=== PATIENT | female | born 2000 | race Caucasian/White ===

== ENCOUNTER 2025-06-22 23:51 | Emergency (ER) | payer OTHER, SELFPAY ==
[2025-06-23] VITALS: BP 134/100
[2025-06-23 00:32] LABS: Hematocrit 41.9 % (37.0-47.0); Hemoglobin 14.4 g/dL (12.0-16.0); Mean Corp Hgb Conc. 34.4 g/dL (33.0-37.0); Mean Corpuscular Volume 85.5 fL (81.0-99.0); Nucleated Red Blood Cells % 0 %; Platelet Count 235 10^3/uL (130-400); Red Cell Dist. Width 12.0 % (11.5-14.5)
[2025-06-23 00:38] LABS: HCG, Serum Qualitative Screen Negative
[2025-06-23 00:48] LABS: ALT (SGPT) 14 U/L (0-35); AST (SGOT) 18 U/L (14-36); Albumin 4.5 g/dl (3.5-5.0); Alkaline Phosphatase 67 U/L (38-126); Blood Urea Nitrogen 11 mg/dl (7-17); Calcium 9.1 mg/dl (8.4-10.2); Carbon Dioxide 24 mmol/L (22-30); Chloride 107 mmol/L (98-107); Glucose 100 mg/dl (70-99); Potassium 3.8 mmol/L (3.5-5.1); Sodium 138 mmol/L (135-145); Total Protein 7.4 g/dl (6.3-8.2); eGFR > 60.00
[2025-06-23 02:19] VITALS: BMI 21.6
[2025-06-23 02:24] VITALS: BP 125/92
[2025-06-23 03:00] VITALS: BP 118/82
--- NOTE | 2025-06-23 03:27 | ED.GENMED ---
History of Present Illness
General
Chief Complaint: Weakness
Source: patient
Exam Limitations: none
Time Seen by Provider: 06/23/25 03:23
Nursing documentation reviewed up to this point in time: agreed with
History of Present Illness
History of Present Illness:
Note:
CHIEF COMPLAINT(S)
Palpitations and tremors.
HISTORY OF PRESENT ILLNESS
The patient is a 25-year-old female who presented with an episode of rapid heartbeat occurring approximately a few minutes after waking up in the night. She noticed her heart racing immediately upon waking and described feeling very clammy at the
time. Additionally, the patient reported experiencing tremors, primarily affecting her legs, but also with some involvement of the entire body. She noted an inability to remember the episode clearly and had difficulty articulating sentences during
the event. The episode gradually subsided as she was en route to the medical facility.
During the episode, the patient did not experience any chest pain but felt 'foggy' with no associated headaches. There were no preceding events such as bad dreams, and she did not have a history of similar episodes. She denied any recent contact
with sick individuals, feelings of warmth or fever, and had not been taking any new medications. She reported no recent vomiting, abdominal or chest pain, nor any lightheadedness or fainting episodes in the past few days. The patient has no known
medical conditions, does not consume large amounts of caffeine daily, and does not smoke cigarettes. She has not engaged in any heavy manual labor or prolonged outdoor work recently. Currently, she reports feeling better, although not completely
back to baseline, with a lingering sensation of 'foggy' thinking.
PAST MEDICAL AND SURIGICAL HISTORY
The patient has no known past medical or surgical history.
SOCIAL HISTORY
Denies smoking cigarettes and excessive caffeine consumption.
MEDICATIONS
No new medications; existing regimen unchanged.
REVIEW OF SYSTEMS
- Cardiovascular: Palpitations reported.
- Neurological: Tremors predominantly in legs, transient difficulty in speech and 'foggy' sensation. No dizziness or headaches.
- General: No fever or chills.
- Respiratory: Mild difficulty in breathing at the peak of the episode, resolved.
- Gastrointestinal: No vomiting or abdominal pain.
PHYSICAL EXAM
General: Alert, no acute distress.
Skin: Warm, dry.
Head: Normocephalic, atraumatic.
Neck: Supple, trachea midline.
Eye Ears, Nose, Mouth, and Throat: Oral mucosa moist.
Cardiovascular: Normal peripheral perfusion, No edema.
Respiratory: Respirations are non-labored.
Gastrointestinal: Abdomen nondistended.
Back: Normal range of motion, Normal alignment.
Musculoskeletal: Normal ROM, normal strength.
Neurological: Alert and oriented to person, place, time, and situation, No focal neurological deficit observed. CN II-XII intact. Normal gait. Normal finger to nose, heel to solorio.
Psychiatric: Cooperative, appropriate mood & affect.
PLAN
The patient was reassured, and it was suggested that she follow up with cardiology for further evaluation with a Holter monitor to assess for any intermittent cardiac arrhythmias. Blood work was checked. The patient was advised to contact the
cardiology office for scheduling.
DIFFERENTIAL DIAGNOSIS
The Differential Diagnosis includes, in no particular order and is not limited to:
1. Supraventricular Tachycardia (SVT)
2. Panic Attack
3. Hyperthyroidism
4. Electrolyte Imbalance
5. Vasovagal Syncope
6. Orthostatic Hypotension
7. Anxiety Disorder
8. Dehydration
9. Atrial Fibrillation
10. Neurological Disorder
Disposition:
SUMMARY OF ENCOUNTER
A 25-year-old female with no past medical history presented with a transient episode of tremors, confusion, and palpitations, which subsided by the time she arrived at the emergency department. The episode began approximately a few minutes after
waking up and interrupted her sleep. Currently, she feels well and is in no acute distress. An evaluation was performed, including a review of telemetry monitoring which showed no signs of arrhythmia, and an EKG that indicated normal sinus rhythm
with no ischemic changes or dysrhythmia. Laboratory tests were unremarkable, and a thorough neurological exam was normal and non-focal.
ASSESSMENT
The differential diagnosis for the episode includes dysrhythmia, panic attack, thyroid disorder, pericarditis, URI etc. However, the patient is currently asymptomatic with no chest pain, palpitations, or shortness of breath.
PLAN
The patient was advised to follow up for further evaluation, including potential Holter monitoring, and was counseled on strict return precautions.
INDEPENDENT REVIEW OF LABS AND INTERPRETATION OF TESTS
My independent review of telemetry monitoring shows no signs of arrhythmia. My independent interpretation of the EKG is normal sinus rhythm with no ischemic changes or dysrhythmia. My independent review of lab tests indicates they are unremarkable.
PATIENT EDUCATION AND COUNSELING
The patient was advised to follow up for further evaluation, including potential Holter monitoring, and was counseled on strict return precautions.
FOLLOW-UP INSTRUCTIONS
The patient was advised to contact a cardiology office for follow-up, including potential Holter monitoring.
MEDICAL DECISION MAKING
-Complexity of Data Reviewed: Differential diagnosis includes dysrhythmia, panic attack, thyroid disorder, and pericarditis.
-Data:
Category 1:
My independent review of telemetry shows no signs of arrhythmia.
My independent interpretation of EKG is normal sinus rhythm with no ischemic changes or dysrhythmia.
Lab tests were reviewed and found to be unremarkable.
-Risk: Consideration of Admission/Observation was considered given the complexity and risk of the patients presenting complaint, exam findings, and/or their underlying comorbidities. However, ultimately the patient is deemed safe for outpatient
management with close follow-up. Reasoning: The work-up was reassuring and did not reveal any acute life/organ-threatening processes, her symptoms were well controlled upon reevaluation, reexamination was reassuring, vitals were stable, and the
patient was agreeable with discharge and reliable for follow-up.
DIAGNOSIS
1. Palpitations - R00.2
2. Tremors - R25.1
3. Altered mental status, unspecified - R41.82
Review of Systems
Review of Systems
All Other Systems: ROS reviewed and negative except as documented in HPI and ROS
Phy Exam
Physical Exam
Physical Exam:
see hpi
Course
Orders/Labs/Results
Orders:
Orders
06/23/25 00:06
EKG [Electrocardiogram (*1)] Urgent
Reason for Study: Fatigue / Weakness
06/23/25 00:07
EKG- Treatment ONCE
Test Result ONCE
06/23/25 00:19
Complete Blood Count/With Diff Urgent
Comprehensive Metabolic Panel Urgent
HCG, Serum Qualitative Screen Urgent
Abnormal Lab Results
06/23/25
00:19
Absolute Monos (auto) 0.7 H 10^3/uL
(0.1-0.6)
Monocytes % 9.9 H %
(1.7-9.3)
Glucose 100 H mg/dl
(70-99)
06/23/25 00:19
06/23/25 00:19
Vital Signs
Initial and Last Documented VS:
Initial Vital Signs
Temp Pulse Resp BP Pulse Ox
98.4 F 110 20 134/100 100
06/23/25 00:00 06/23/25 00:00 06/23/25 00:00 06/23/25 00:00 06/23/25 00:00
Last Documented Vital Signs
Temp Pulse Resp BP Pulse Ox
98.4 F 62 13 121/81 97
06/23/25 00:00 06/23/25 03:49 06/23/25 03:00 06/23/25 03:49 06/23/25 03:49
*Pulse Oximetry
SaO2: 100
Oxygen Mode of Delivery: Room air
Patient hypoxic: no
*Critical Care Note
Total Time (30-74mins, 75-104mins- exclusive of procedures): Not Applicable
ED Attending Note
-
Portions of this chart may have been created with voice recognition software.� Occasional wrong word or��sound alike� substitutions may have occurred due to the inherent limitations of voice recognition software.
Discharge Plan
Departure
Patient Disposition: Home (Routine Discharge)
Date of Disposition: 06/23/25
Time of Disposition: 03:44
Patient with high blood pressure during this ER visit?: Yes
Condition: Good
Discharge Problem:
Palpitations, Transient confusion
Instructions: Generalized Weakness (DC), Palpitations
Prescriptions:
No Action
norethindrone-e.estradiol-iron [Aurovela Fe 1-20 (28)] 1 mg-20 mcg (21)/75 mg (7) Tablet
1 tab PO DAILY
Referrals:
Veronica Sebastian MD [Family Provider, Internal Medicine]
Salina Hobbs MD [Active, Cardiology] - Call in 1-3 days for appt
Activity Restrictions/Additional Instructions:
Please call the attached number to schedule an appointment to see cardiology in follow up, you may need halter monitoring for further evaluation.
Please follow up with your primary care provider in one week for reassessment.
PLEASE RETURN EMERGENCY DEPARTMENT SHOULD YOU DEVELOP EPISODE OF LOSS OF CONSCIOUSNESS, FAINTING SPELL, FEVERS OR CHILLS, INTRACTABLE NAUSEA OR VOMITING, PERSISTENT HEADACHES, CHEST PAIN, SHORTNESS OF BREATH, OR ANY OTHER SIGNS OR SYMPTOMS WORRISOME
TO YOU.
Interventions
Interventions:
*Risk Screen - Suicide Last Done: 06/23/25 00:00
*General Assessment Last Done: 06/23/25 02:19
*Neglect/Abuse Screening Last Done: 06/23/25 02:19
*ED- Fall Risk Assessment Last Done: 06/23/25 02:19
*ED COVID-19 Vaccine History Last Done: 06/23/25 02:19
*Nursing Disposition Last Done: 06/23/25 04:04
ED- Pulmonary Assessment Last Done: 06/23/25 02:19
ED- Neurological Assessment Last Done: 06/23/25 02:19
ED- Cardiac Assessment Last Done: 06/23/25 02:19
Discharge Date and Time
Discharge Date/Time: 06/23/25 04:08
Print Language: LAO
[2025-06-23 03:49] VITALS: BP 121/81
== END 2025-06-23 04:08 | disposition home or self-care (01) ==
LOC: EMR 23:51
PROVIDERS: EMERGENCY PHYSICIAN Student in an Organized Health Care Education/Training Program; FAMILY PHYSICIAN Internal Medicine
DX: R00.2 Palpitations (principal); R41.0 Disorientation, unspecified
CPT/HCPCS: 99284; 80053; 84703; 85025; 93005

== ENCOUNTER 2025-07-21 11:26 | Emergency (ER) | payer OTHER, SELFPAY ==
[2025-07-21] VITALS (7 sets, daily range): BP systolic 116–153; BP diastolic 81–96; PULSE 80–135
--- NOTE | 2025-07-21 13:15 | ED.GENMED ---
History of Present Illness
General
Chief Complaint: Cardiac Symptoms
Source: patient
Time Seen by Provider: 07/21/25 12:43
History of Present Illness
History of Present Illness:
25-year-old female with no significant past medical history presents back to the emergency department after being seen approximately 1 month ago for continued palpitations noting that at rest her heart rate will be around the 100 to 105 bpm, when
ambulating will go as high as 145 bpm and accompanied with some mild shortness of breath, lightheadedness but no near syncopal episodes. Patient states that her symptoms have not gotten any worse from when she was seen here in the emergency
department but they have not gotten any better. She has done outpatient workup with her primary care provider noting that on labs her ferritin was a little bit low and is currently taking vitamin B12 and iron supplementation as well as had a CT
scan of her chest to rule out PE which was negative due to being on an oral contraceptive recently as well as traveling to [place] in May. Patient has no other concerns at this time.
Past History
Past History
ED Past Medical History: None
ED Past Surgical History: None
Social History
Tobacco: Non-smoker
Alcohol: None
Drug: None
Personal:
Living: with family
Employment: Employed
Review of Systems
Review of Systems
All Other Systems: ROS reviewed and negative except as documented in HPI and ROS
Phy Exam
Physical Exam
Physical Exam:
GENERAL: Alert , in no apparent distress
HEAD: Normocephalic atraumatic
EYE: conjunctiva clear
NECK: Supple, no significant adenopathy.
ENT: o/p clr, mmm.
CARDIAC: Borderline tachycardic heart rate and rhythm around 85 bpm to 95 bpm, intermittently will go to as high as 108 bpm
LUNGS: Clear breath sounds bilaterally, no acute respiratory distress, no wheezes/rales/rhonchi
NEUROLOGICAL: Alert and oriented
SKIN: Warm and dry, skin intact.
MUSCULOSKELETAL: well perfused. No edema
PSYCH: Normal and appropriate interaction.
Scores
Heart Failure Risk
Heart Failure Risk Score: Not Applicable
Heart Score for Chest Pain Patients
STEMI patient?: Not applicable
Withdrawal Assessment of Alcohol
Withdrawal Assessment Completed?: Not applicable
Course
Orders/Labs/Results
Orders:
Orders
07/21/25 11:28
EKG [Electrocardiogram (*1)] Urgent
Reason for Study: Tachycardia
EKG- Treatment ONCE
07/21/25 12:43
Test Result ONCE
07/21/25 12:47
Orthostatic VS- Treatment ONCE
07/21/25 13:03
US Periph Venous LOWER Ext Charlie Urgent
Comment:
Reason For Exam: recent travel, pain, palpitations
07/21/25 13:09
Complete Blood Count/With Diff Urgent
Comprehensive Metabolic Panel Urgent
HCG, Serum Qualitative Screen Urgent
TSH Urgent
Troponin I Urgent
Abnormal Lab Results
07/21/25
13:09
Absolute Lymphs (auto) 1.0 L 10^3/uL
(1.2-3.4)
Neutrophils % 75.4 H %
(42.2-75.2)
Lymphocytes % 15.1 L %
(20.5-51.1)
Total Bilirubin 1.5 H mg/dl
(0.2-1.3)
ALT 39 H U/L
(0-35)
Total Protein 8.3 H g/dl
(6.3-8.2)
07/21/25 13:09
07/21/25 13:09
Vital Signs
Initial and Last Documented VS:
Initial Vital Signs
Temp Pulse Resp BP Pulse Ox
98.4 F 110 18 153/96 98
07/21/25 11:34 07/21/25 11:34 07/21/25 11:34 07/21/25 11:34 07/21/25 11:34
Last Documented Vital Signs
Temp Pulse Resp BP Pulse Ox
98.4 F 89 18 125/93 98
07/21/25 11:34 07/21/25 14:00 07/21/25 14:00 07/21/25 14:00 07/21/25 13:22
MDM/Problems Addressed
Differential Diagnosis Includes:
POTS
Orthostasis
Cardiac arrhythmia/dysrhythmia
I do not have concern for PE given recent negative CTA of the chest
Electrolyte imbalance
Thyroid disorder
MDM/Problems Addressed:
25-year-old female presenting back to the emergency department for continued episodes of palpitations, intermittent lightheadedness, worse when going from sitting to standing. No fevers or infectious symptoms, so far unremarkable workup as an
outpatient as well as in the ER earlier in the month. Patient without fevers or infectious symptoms. Will recheck labs, patient concern for possible DVT even though my suspicion for this is very low given her recent negative CTA, will obtain this
study. Anticipate discharge home with need for outpatient cardiac follow-up. Discussed need for likely Holter monitor, possible echocardiogram.
*Radiology
Radiology exam reviewed: radiology read reviewed
*Pulse Oximetry
SaO2: 98
Oxygen Mode of Delivery: Room air
Patient hypoxic: no
*Medical Laboratory Scientist Interpretation
Rate: tachycardiac
Heart Rate: 100
Rhythm: sinus
*Critical Care Note
Total Time (30-74mins, 75-104mins- exclusive of procedures): Not Applicable
Data Reviewed
Review of Other/Old Records Reveals: Labs and Records
Patient Management
Escalation/DeEscalation of care consider admission/obs:
Patient's ultrasound negative for DVT. Her workup is reassuring without any significant abnormalities. On multiple reevaluations her heart rate remained in the mid 70s to low 80s. Patient did express to me she already had an arranged follow-up
with [facility] cardiology this coming Saturday as well as a follow-up with her primary care provider this coming Saturday. Encouraged patient to keep both of these appointments. Discussed return precautions to the ER. Stable for discharge
home otherwise.
ED Attending Note
-
Portions of this chart may have been created with voice recognition software.� Occasional wrong word or��sound alike� substitutions may have occurred due to the inherent limitations of voice recognition software.
Discharge Plan
Departure
Patient Disposition: Home (Routine Discharge)
Date of Disposition: 07/21/25
Time of Disposition: 14:10
Patient with high blood pressure during this ER visit?: Yes
Discharge Problem:
Palpitations
Instructions: Palpitations - ED (DC), Chest Pain DCA Follow Up
Prescriptions:
No Action
norethindrone-e.estradiol-iron [Aurovela Fe 1-20 (28)] 1 mg-20 mcg (21)/75 mg (7) Tablet
1 tab PO DAILY
Referrals:
Veronica Sebastian MD [Family Provider, Internal Medicine]
Interventions
Interventions:
*Risk Screen - Suicide Last Done: 07/21/25 11:36
*General Assessment Last Done: 07/21/25 13:19
*Neglect/Abuse Screening Last Done: 07/21/25 11:36
*ED- Fall Risk Assessment Last Done: 07/21/25 11:36
*ED COVID-19 Vaccine History Last Done: 07/21/25 13:19
*ED Influenza Vaccine History Last Done: 07/21/25 13:19
*Nursing Disposition Last Done: 07/21/25 14:21
ED- Pulmonary Assessment Last Done: 07/21/25 13:19
ED- Cardiac Assessment Last Done: 07/21/25 13:19
Discharge Date and Time
Discharge Date/Time: 07/21/25 14:22
Print Language: NIGERIEN
[2025-07-21 13:20] LABS: Hematocrit 43.1 % (37.0-47.0); Hemoglobin 15.0 g/dL (12.0-16.0); Mean Corp Hgb Conc. 34.8 g/dL (33.0-37.0); Mean Corpuscular Volume 83.9 fL (81.0-99.0); Nucleated Red Blood Cells % 0 %; Platelet Count 254 10^3/uL (130-400); Red Cell Dist. Width 11.8 % (11.5-14.5)
[2025-07-21 13:36] LABS: HCG, Serum Qualitative Screen Negative
[2025-07-21 13:42] LABS: ALT (SGPT) 39 U/L (0-35); AST (SGOT) 32 U/L (14-36); Albumin 4.9 g/dl (3.5-5.0); Alkaline Phosphatase 73 U/L (38-126); Blood Urea Nitrogen 9 mg/dl (7-17); Calcium 10.0 mg/dl (8.4-10.2); Carbon Dioxide 24 mmol/L (22-30); Chloride 106 mmol/L (98-107); Glucose 90 mg/dl (70-99); Potassium 4.3 mmol/L (3.5-5.1); Sodium 137 mmol/L (135-145); Total Protein 8.3 g/dl (6.3-8.2); eGFR > 60.00
[2025-07-21 13:45] LABS: Troponin I < 0.012 ng/ml
[2025-07-21 14:02] LABS: TSH 1.02 uIU/ml (0.47-4.68)
== END 2025-07-21 14:22 | disposition home or self-care (01) ==
LOC: EMR 11:26
PROVIDERS: Physician Assistant Medical; EMERGENCY PHYSICIAN Emergency Medicine; FAMILY PHYSICIAN Internal Medicine
DX: R00.2 Palpitations (principal)
CPT/HCPCS: 99284; 80053; 84443; 84484; 84703; 85025; 93005; 93970

== ENCOUNTER 2025-07-21 23:39 | Emergency (ER) | payer OTHER, SELFPAY ==
[2025-07-21 23:48] VITALS: BP 136/92
[2025-07-22] VITALS (10 sets, daily range): BP systolic 116–142; BP diastolic 77–96; PULSE 96–124
--- NOTE | 2025-07-22 02:43 | ED.GENMED ---
History of Present Illness
General
Chief Complaint: Heart Rate Problem
Source: patient and previous hospital records (ED visit for similar complaint 1 month ago as well as just yesterday.)
Exam Limitations: none
Time Seen by Provider: 07/22/25 02:14
Nursing documentation reviewed up to this point in time: agreed with
History of Present Illness
History of Present Illness:
This is a 25-year-old female with no significant past medical history who presents to the ED with ongoing palpitations, rapid heartbeat for the past month. She was evaluated here 1 month ago as well as yesterday. Thus far unremarkable evaluation
including unremarkable laboratory studies, EKG, lunchroom monitor. Since visit 1 month ago she has also followed up with her PCP and underwent outpatient blood work which showed very mildly low ferritin. She has been started on oral iron tablets.
An outpatient CT of the chest/PE study performed in [facility] 1 week ago was reportedly unremarkable, no evidence of PE.
Ultrasound bilateral lower extremities yesterday was negative for DVT.
She has an initial appointment with grocery clerk selling scheduled for next week.
She returns this morning via EMS after waking abruptly with complaints of palpitations feeling that her heart beat was 155, feeling short of breath, anxious. She is unsure if she had a bad dream but now cannot remember if she was dreaming or not.
She is concerned for possibility of POTS. She has had no syncopal events.
Previously maintained on control pills but these were discontinued 2 to 3 weeks ago.
hCG yesterday as well as a month ago was negative. TSH was normal yesterday. Normal CBC, unremarkable chemistries. Troponin negative yesterday.
She denies caffeine nor drug use nor alcohol use.
Past History
Past History
ED Past Medical History: None
ED Past Surgical History: None
Social History
Tobacco: Non-smoker
Alcohol: None
Drug: None
Personal:
Living: with family
Employment: Employed
Family History
Family History: Other (Noncontributory)
Phy Exam
Physical Exam
Physical Exam:
GENERAL: 25-year-old female appears her stated age, awake and alert, pleasant, mildly anxious but easily communicative. is accompanying.
EYE: anicteric
NECK: Supple, nontender, no meningismus, no significant adenopathy.
ENT: oral mucosa is moist. No rhinorrhea.
CARDIAC: Regular rate and rhythm. no murmur.
LUNGS: Clear breath sounds bilaterally, no acute respiratory distress, no wheezes/rales/rhonchi
ABDOMEN: Soft, nondistended, without focal tenderness
NEUROLOGICAL: Alert and oriented x3, no focal neuro deficits.
SKIN: Warm and dry, normal color, skin intact. No rash.
MUSCULOSKELETAL: No C/C/E. peripheral pulses are full and equal b/l. No palpable tenderness.
PSYCH: Mildly anxious.
Course
Orders/Labs/Results
Orders:
Orders
07/21/25 23:52
ECG [Electrocardiogram (*1)] Urgent
Reason for Study: Tachycardia
EKG- Treatment ONCE
07/22/25 02:27
3 Minute Walk Test [3 Minute Walk Test- Treatment] ONCE
Orthostatic VS- Treatment ONCE
07/22/25 02:42
Encourage PO Hydration-Treatme ONCE
Ondansetron Orally Disint [Zofran Odt (Orally Disintegrating)] 4 mg PO NOW STA
Vital Signs
Initial and Last Documented VS:
Initial Vital Signs
Temp Pulse Resp BP Pulse Ox
98 F 106 20 136/92 97
07/21/25 23:48 07/21/25 23:48 07/21/25 23:48 07/21/25 23:48 07/21/25 23:48
Last Documented Vital Signs
Temp Pulse Resp BP Pulse Ox
98 F 130 18 125/96 99
07/21/25 23:48 07/22/25 04:00 07/22/25 04:00 07/22/25 04:00 07/22/25 04:00
MDM/Problems Addressed
Differential Diagnosis Includes:
Differential diagnosis includes in no particular order and is not limited to:
Cardiac arrhythmia
Iron deficiency
Mitral valve prolapse
POTS
orthostatic hypotension
Anxiety disorder
Pheochromocytoma
Thyroid disorder is unlikely, TSH was normal just yesterday.
Electrolyte abnormality, unlikely, electrolytes within normal limits yesterday as well as 1 month ago.
MDM/Problems Addressed:
Recurrent palpitations
EKG upon arrival shows normal sinus rhythm. Unremarkable and unchanged from previous.
Monitor continues to show normal sinus rhythm.
With unremarkable laboratory studies yesterday as well as 1 month ago. No indication to repeat.
Has undergone unremarkable CT of the chest/PE study recently.
Will check orthostatic vital signs and if unremarkable we will plan for 3-minute walk test with lunchroom monitor in place.
Patient has cardiology follow-up already in place, scheduled for next week.
Chronic conditions affecting care:
Low ferritin level with normal hemoglobin. Initially started oral iron supplement
*Pulse Oximetry
SaO2: 98
Oxygen Mode of Delivery: Room air
Patient hypoxic: no
*EKG
Interpreted by ED Provider?: Yes
Interpretation: normal
Comparison EKG: no changes
Rate: normal
Rhythm: sinus
Flatgap: normal axis
Interval: normal interval
QRS Pattern: normal QRS
Ischemia: no ischemia
*Stars Coordinator Interpretation
Rate: normal
Interpretation: normal
Rhythm: sinus
*Critical Care Note
Total Time (30-74mins, 75-104mins- exclusive of procedures): Not Applicable
Update Note
Update Note:
02:45
Orthostatic vital signs show mild tachycardia with standing, heart rate rises from 90-115 but no change in blood pressure.
Patient complains of lightheadedness with standing and now complains of nausea. She does not believe she can tolerate a walk test.
She has had no episodes of syncope over this past month, no complaints of dizziness or lightheadedness.
I do suspect a significant underlying anxiety component which is understanding as thus far workup has been nonrevealing.
Will give an oral dose of Zofran, orally hydrate, continue lunchroom monitor.
04:45
Patient tolerating oral fluids.
3-minute walk test shows mild sinus tachycardia but she remains otherwise hemodynamically stable, no hypotension.
Will discharge to home with plan for follow-up with grocery clerk selling next week as already planned.
Discussed importance of staying well-hydrated on a daily basis.
Continue to avoid caffeinated beverages, alcohol, chocolate.
ED Attending Note
-
Portions of this chart may have been created with voice recognition software.� Occasional wrong word or��sound alike� substitutions may have occurred due to the inherent limitations of voice recognition software.
Discharge Plan
Departure
Patient Disposition: Home (Routine Discharge)
Date of Disposition: 07/22/25
Time of Disposition: 04:45
Patient with high blood pressure during this ER visit?: No
Condition: Good
Discharge Problem:
Sinus tachycardia, Heart palpitations
Prescriptions:
No Action
norethindrone-e.estradiol-iron [Aurovela Fe 1-20 (28)] 1 mg-20 mcg (21)/75 mg (7) Tablet
1 tab PO DAILY
Referrals:
Veronica Sebastian MD [Family Provider, Internal Medicine]
Activity Restrictions/Additional Instructions:
Stay well-hydrated on a daily basis.
Continue to avoid caffeinated beverages, chocolate, alcohol.
Follow-up with grocery clerk selling as scheduled next week.
Interventions
Interventions:
*Risk Screen - Suicide Last Done: 07/21/25 23:48
*Neglect/Abuse Screening Last Done: 07/21/25 23:48
ED- Cardiac Assessment Last Done: 07/22/25 02:43
ED- Pulmonary Assessment Last Done: 07/22/25 02:43
Discharge Date and Time
Print Language: ALBANIAN
[2025-07-22] MEDS: ZOFRAN ODT (ORALLY DISINTEGRATING) 4 MG PO (02:49)
== END 2025-07-22 05:39 | disposition home or self-care (01) ==
LOC: EMR 23:39
PROVIDERS: EMERGENCY PHYSICIAN Emergency Medicine; FAMILY PHYSICIAN Internal Medicine
DX: R00.0 Tachycardia, unspecified (principal); R00.2 Palpitations
CPT/HCPCS: 99283; 93005